=== PATIENT | female | born 1945 | race Caucasian/White ===

== ENCOUNTER 2021-05-14 06:32 | Inpatient (IN) ==
[~2021-05-14 06:32] MED LIST: Buffered Lidocaine 1% SYRIN 1 ml INTRADERM ONE; Dexamethasone IV 4 MG/ML VIAL 1 ml VIAL IV SLOW PU ONE; Lactated Ringers 1000 ml BAG 1,000 ML IV SCH
[2021-05-14] MEDS ORDERED: Ropivacaine 5 MG/ML 20 ML VIAL 0.5% (100 MG) ONE (06:41)
[2021-05-14] MEDS ORDERED: Dexamethasone IV 4 MG/ML VIAL 1 ml VIAL ONE (06:52)
[2021-05-14] MEDS ORDERED: Buffered Lidocaine 1% SYRIN 1 ml INTRADERM ONE (06:53)
[2021-05-14] MEDS ORDERED: ceFAZolin 2 GM in NS PREMIX 2 GM/100 ML BAG IVPB ONE (06:53)
[2021-05-14] MEDS ORDERED: Propofol 0 MG/0 ML BTL ONE (07:14)
[2021-05-14] MEDS ORDERED: Midazolam 2 mg/2 ml VIAL 1 mg/ml 2 ml VIAL (2 mg) ONE (07:14)
[2021-05-14] MEDS ORDERED: Lidocaine 2% PF 5 ML VIAL ONE (07:14)
[2021-05-14] MEDS ORDERED: fentaNYL 100 mcg/2 ml 50 MCG/ML VIAL ONE (07:14)
[2021-05-14] MEDS ORDERED: Propofol 10 MG/ML 20 ML BTL ONE (07:31)
[2021-05-14] MEDS ORDERED: ROPIVACAINE 5 MG/ML 30 ML BTL (0.5%) ONE ×2 (07:38→07:51)
[2021-05-14] MEDS ORDERED: Prochlorperazine 5 mg/ml 2 ml VIAL (10 mg) IV PRN (08:46)
[2021-05-14] MEDS ORDERED: Naloxone 0.4 mg VIAL 0.4 mg/ml 1 ml VIAL IV PRN (08:46)
[2021-05-14] MEDS ORDERED: Morphine 4 MG/ML VIAL (1 ml) IV PRN ×2 (08:46→12:52)
[2021-05-14] MEDS ORDERED: fentaNYL 100 mcg/2 ml 50 MCG/ML VIAL IV PRN (08:46)
[2021-05-14] MEDS ORDERED: Famotidine IV 10 MG/ML 2 ml VIAL (20 mg) ONE (09:01)
[2021-05-14] MEDS ORDERED: Phenylephrine IV 10 MG/ML 1 ml VIAL ONE ×2 (09:24)
[2021-05-14] MEDS ORDERED: Ondansetron 4 mg VIAL 2 MG/ML 2 ml VIAL IV PRN (10:40)
[2021-05-14] MEDS ORDERED: Lactulose 30 ml UDC PO PRN (10:40)
[2021-05-14] MEDS ORDERED: Morphine 2 MG/ML SYRINGE IV PRN (10:40)
[2021-05-14] MEDS ORDERED: diPHENhydraMINE IV 50 MG/ML 1 ml VIAL (BENADRYL) IV PRN (10:40)
[2021-05-14] MEDS ORDERED: diPHENhydraMINE 25 mg TAB PO PRN (10:40)
[2021-05-14] MEDS ORDERED: Ondansetron ODT 4 mg TAB 4 MG TAB PO PRN (10:40)
[2021-05-14] MEDS ORDERED: Magnesium Hydroxide LIQ 30 ML UDC PO PRN (10:40)
[2021-05-14] MEDS: Lactated Ringers 1000 ml BAG 1,000 ML IV SCH (12:15)
[2021-05-14] MEDS ORDERED: NS 0.9% 1000 ml BAG 1,000 ML IV ONE (14:10)
[2021-05-14] MEDS: ESOMEPRAZOLE 20 MG PO SCH (17:38)
[2021-05-14] MEDS: ceFAZolin 1 GM ADVAN 1 GM in NS 0.9% 50 ML 50 ML IVPB SCH (17:38)
[2021-05-14] MEDS: Magnesium Hydroxide LIQ 30 ML UDC PO SCH (21:55)
[2021-05-15] MEDS: ceFAZolin 1 GM ADVAN 1 GM in NS 0.9% 50 ML 50 ML IVPB SCH ×2 (00:53→08:34)
[2021-05-15] MEDS: Lactated Ringers 1000 ml BAG 1,000 ML IV SCH (03:01)
[2021-05-15 05:35] LABS: Hematocrit 27 % (35-47); Hemoglobin 9.2 g/dL (12.0-16.0); Mean Platelet Volume 8.1 fL (7.4-10.4); Platelet Count 180 10^3/uL (150-450)
[2021-05-15 05:58] LABS: Calcium 8.6 mg/dL (8.6-10.3); EGFR African American 68.7 (>60); EGFR Non-African American 56.8 (>60); Potassium 3.9 mmol/L (3.5-5.0)
[2021-05-15] MEDS ORDERED: ESOMEPRAZOLE 20 MG PO SCH (07:30)
[2021-05-15] MEDS: Magnesium Hydroxide LIQ 30 ML UDC PO SCH (08:36)
[2021-05-15] MEDS ORDERED: Vitamin THERAPEUTIC TAB PO SCH (09:00)
[2021-05-15] MEDS ORDERED: Lactated Ringers 1000 ml BAG 1,000 ML IV ONE ×2 (11:48→11:57)
[2021-05-15 18:04] VITALS: BP 120/64
[2021-05-15] MEDS: ESOMEPRAZOLE 20 MG PO SCH (18:06)
== END 2021-05-15 18:28 | disposition home or self-care (01) | DRG 470 ==
LOC: AA 06:32 → SSU 11:54
PROVIDERS: ADMIT Orthopaedic Surgery Adult Reconstructive Orthopaedic Surgery; ATTEND Orthopaedic Surgery Adult Reconstructive Orthopaedic Surgery